=== PATIENT | male | born 1945 | race Caucasian/White ===

== ENCOUNTER 2017-07-26 07:58 | Day surgery (SDC) | payer MEDICARE, BC ==
[~2017-07-26] VITALS: Ht 177.8 cm; Wt 83.5 kg
[~2017-07-26 07:58] MED LIST: ALOE PO; APPLE CIDER VINEGAR; B COMPLEX PO; BACTROBAN TOP; BIOTIN PO; BLACK CHERRY PO; BONE PO; CHOND PO; COMPLETE TISSUE PO; COPPER PO; CRANACTIN PO; EAR DROPS EARWA6.5 % AU; FLAX OIL PO; GARLIC PO; GLUCOSAMINE PO; HYDROXYZ HCL25 MG PO; KEFLEX500 MG PO; LECITHIN PO; MEDDOSEPAK PO; MUSCLE RELAXER; NAPROSYN500 MG PO; NIACIN PO; OMEGA PO; RESVERATROL PO; STEEL LIBIDO PO; TRIAMCINOLON0.11 EX; TRIAMCINOLON0.5 % EX; VITAMIN A PO; VITAMIN B-12 PO; VITAMIN B6; VITAMIN C PO; VITAMIN D3 PO; VITAMIN E PO; VOSOL2 % AU; ZINC PO; [UNRECOGNIZED DRUG - OTHER]; [UNRECOGNIZED DRUG - OTHER] PO; [UNRECOGNIZED DRUG - OTHER] PO; [UNRECOGNIZED DRUG - OTHER] PO; [UNRECOGNIZED DRUG - OTHER] PO; [UNRECOGNIZED DRUG - OTHER] PO; [UNRECOGNIZED DRUG - OTHER] PO; [UNRECOGNIZED DRUG - OTHER] PO
[2017-07-26 11:14] VITALS: BP 144/74
== END 2017-07-26 11:10 | disposition home or self-care (01) ==
LOC: ENDO 07:58 → ORM 08:30 → ENDO 09:45
PROVIDERS: ATTEND Surgery
PROC: 0DB48ZX Excision of Esophagogastric Junction, Via Natural or Artificial Opening Endoscopic, Diagnostic (ICD-10-PCS; principal; 2017-07-26)
PROC: 0DB78ZX Excision of Stomach, Pylorus, Via Natural or Artificial Opening Endoscopic, Diagnostic (ICD-10-PCS; 2017-07-26)
DX: R13.10 Dysphagia, unspecified (principal); K29.50 Unspecified chronic gastritis without bleeding; K21.0 Gastro-esophageal reflux disease with esophagitis; Z98.890 Other specified postprocedural states

== ENCOUNTER → 2018-06-16 | Outpatient (REF) | payer MEDICARE, BC ==
[~2018-06-16] MED LIST changes: +ACULAR LS0.4 % OS; +ERYTHROMYCIN O3.5 GM OU
== END | disposition home or self-care (01) ==
LOC: MRI 14:33
PROVIDERS: ATTEND Physician Assistant
DX: M54.2 Cervicalgia (principal); M50.320 Other cervical disc degeneration, mid-cervical region, unspecified level

== ENCOUNTER 2018-06-22 08:25 | Emergency (ER) | payer MEDICARE, BC ==
[~2018-06-22] VITALS: Ht 177.8 cm; Wt 85.0 kg
[~2018-06-22 08:25] MED LIST changes: -ACULAR LS0.4 % OS; -ERYTHROMYCIN O3.5 GM OU
[2018-06-22] MEDS ORDERED: ERYTHROMYCIN O3.5 GM OU (09:23)
[2018-06-22] MEDS ORDERED: ACULAR LS0.4 % OS (09:23)
[2018-06-22 09:26] VITALS: BP 153/86
== END 2018-06-22 09:30 | disposition home or self-care (01) ==
LOC: ED 08:25
DX: H10.9 Unspecified conjunctivitis (principal)

== ENCOUNTER → 2018-11-08 | Outpatient (REF) | payer MEDICARE, BC ==
[~2018-11-08] VITALS: Ht 175.3 cm; Wt 84.8 kg
[~2018-11-08] MED LIST changes: +ACULAR LS0.4 % OS; +ERYTHROMYCIN O3.5 GM OU
[2018-11-08 10:47] VITALS: BP 144/76
== END | disposition home or self-care (01) ==
LOC: PO 09:50 → ORM 10:00
PROVIDERS: ATTEND Internal Medicine Gastroenterology
DX: Z01.818 Encounter for other preprocedural examination (principal); R13.10 Dysphagia, unspecified; K21.9 Gastro-esophageal reflux disease without esophagitis; G47.30 Sleep apnea, unspecified; Z90.79 Acquired absence of other genital organ(s); Z98.890 Other specified postprocedural states; Z97.2 Presence of dental prosthetic device (complete) (partial)

== ENCOUNTER 2018-11-11 07:55 | Day surgery (SDC) | payer MEDICARE, BC ==
[~2018-11-11] VITALS: Ht 175.3 cm; Wt 84.8 kg
[2018-11-11 10:39] VITALS: BP 145/79
== END 2018-11-11 11:06 | disposition home or self-care (01) ==
LOC: ENDO 07:55 → ORM 10:00 → ENDO 10:00
PROVIDERS: ATTEND Internal Medicine Gastroenterology
PROC: 0DB48ZX Excision of Esophagogastric Junction, Via Natural or Artificial Opening Endoscopic, Diagnostic (ICD-10-PCS; principal; 2018-11-11)
PROC: 0D758ZZ Dilation of Esophagus, Via Natural or Artificial Opening Endoscopic (ICD-10-PCS; 2018-11-11)
DX: K22.2 Esophageal obstruction (principal); K21.0 Gastro-esophageal reflux disease with esophagitis; K29.71 Gastritis, unspecified, with bleeding; K29.81 Duodenitis with bleeding; Z98.890 Other specified postprocedural states

== ENCOUNTER 2019-07-14 15:18 | Emergency (ER) | payer MEDICARE, BC ==
[~2019-07-14] VITALS: Ht 175.3 cm; Wt 70.0 kg
[2019-07-14] MEDS ORDERED: CARAFATE1 GM PO (15:39)
[2019-07-14 15:41] VITALS: BP 128/77
== END 2019-07-14 15:44 | disposition home or self-care (01) ==
LOC: ED 15:18
DX: Z03.89 Encounter for observation for other suspected diseases and conditions ruled out (principal)

== ENCOUNTER 2020-02-09 07:00 | Emergency (ER) | payer MEDICARE, BC ==
[~2020-02-09 07:00] MED LIST changes: +CARAFATE1 GM PO
[2020-02-09] MEDS ORDERED: CARAFATE PO (07:23)
[2020-02-09] MEDS ORDERED: OMEPRAZOLE DR20 MG (07:24)
[2020-02-09 07:55] LABS: IMMATURE GRANULOCYTES 0.3 % (0.0-5.0); MEAN CELL VOLUME 86.7 fL CALC (80.0-100.0); MEAN CORPUSCULAR HGB 27.7 pG CALC (26.0-32.0); NEUT# 5.82 thou/uL (1.82-7.42); RED BLOOD COUNT 4.65 mill/uL (4.70-6.10); RED CELL DISTRI WIDTH 15.4 % (11.5-15.5)
[2020-02-09 08:02] LABS: HEMATOCRIT 40.3 % (39.0-50.0); HEMOGLOBIN 12.9 g/dl (14.0-18.0)
[2020-02-09 08:08] LABS: ALBUMIN 3.7 g/dL (3.2-5.0); ALKALINE PHOSPHATASE 54 u/l (38-126); ANION GAP 12 (6-22 (CALC)); BUN 19 mg/dL (8-23); BUN/CREATININE RATIO 18 (12-20 (CALC)); CARBON DIOXIDE 23 mmol/l (22-30); CHLORIDE 106 mmol/l (95-108); GFR > 60 ML/MIN (>=60 (CALC)); GFR FOR AFR.AMER. > 60 ML/MIN (>=60 (CALC)); LIPASE 94 u/l (23-300); POTASSIUM 4.4 mmol/l (3.5-5.1); SGOT/AST 49 u/l (19-48); SODIUM 137 mmol/l (137-146); TOTAL PROTEIN 6.5 g/dL (6.3-8.2)
[2020-02-09 08:09] LABS: BILIRUBIN, TOTAL 0.6 mg/dL (0.0-1.4)
[2020-02-09 08:12] VITALS: BP 192/80
[2020-02-09 08:13] LABS: ACT PARTIAL THROMBO TIME 29.6 SECONDS (20.0-32.5); D-DIMER 1.58 mg/L (0.19-0.60); INTERNATIONAL NORMALIZED RATIO 1.1 RATIO (0.7-1.3); PROTHROMBIN TIME 11.1 SECONDS (9.0-12.5)
== END 2020-02-09 08:08 | disposition short-term general hospital (02) ==
LOC: ED 07:00
DX: R07.9 Chest pain, unspecified (principal); R00.1 Bradycardia, unspecified; I44.7 Left bundle-branch block, unspecified; I44.1 Atrioventricular block, second degree; J18.9 Pneumonia, unspecified organism; Z20.828 Contact with and (suspected) exposure to other viral communicable diseases

== ENCOUNTER 2020-12-07 12:25 | Emergency (ER) | payer MEDICARE, BC ==
[~2020-12-07] VITALS: Ht 177.8 cm; Wt 56.0 kg
[~2020-12-07 12:25] MED LIST changes: +ALOE VER EX; +BIOTIN10 M1 PO; +CARAFATE PO; +CRANBERRY425 M1 PO; +ENALAPR/HCTZ1 TAB PO; +FLAX SEED OIL1300 MG PO; +GARLIC100 MG PO; +GLUCOSAMINE CHO1 CA3 PO; +NIACIN500 M2 PO; +OMEGA 3 500 5001 CAP PO; +OMEPRAZOLE DR20 MG; +PSYLLIUM XX; +VITAMIN A8000 UNI1 PO; +VITAMIN B 6100 MG PO; +VITAMIN B COMPL1 TAB PO; +VITAMIN B-12500 MCG PO; +VITAMIN D3400 UNI2 PO; +VITAMIN7 PO; +ZINC CHELATED PO; +[UNRECOGNIZED DRUG - CODE] IV; +[UNRECOGNIZED DRUG - CODE] PO; +[UNRECOGNIZED DRUG - OTHER]; +[UNRECOGNIZED DRUG - OTHER] PO; +[UNRECOGNIZED DRUG - OTHER] PO; +[UNRECOGNIZED DRUG - OTHER] PO; +[UNRECOGNIZED DRUG - OTHER] XX
[2020-12-07 12:54] LABS: HEMATOCRIT 41.7 % (39.0-50.0); HEMOGLOBIN 13.9 g/dl (14.0-18.0); IMMATURE GRANULOCYTES 0.4 % (0.0-5.0); MEAN CELL VOLUME 90.3 fL CALC (80.0-100.0); MEAN CORPUSCULAR HGB 30.1 pG CALC (26.0-32.0); MEAN CORPUSCULAR HGB CONC 33.3 g/dL CAL (32.0-36.0); NEUT# 5.16 thou/uL (1.82-7.42); RED BLOOD COUNT 4.62 mill/uL (4.70-6.10); RED CELL DISTRI WIDTH 12.8 % (11.5-15.5)
[2020-12-07] MEDS ORDERED: [UNRECOGNIZED DRUG - OTHER] PO (13:13)
[2020-12-07 13:27] LABS: ALBUMIN 4.4 g/dL (3.2-5.0); ALKALINE PHOSPHATASE 50 u/l (38-126); ANION GAP 15 (6-22 (CALC)); BILIRUBIN, TOTAL 0.6 mg/dL (0.0-1.4); BUN 30 mg/dL (8-23); BUN/CREATININE RATIO 25 (12-20 (CALC)); CARBON DIOXIDE 21 mmol/l (22-30); CHLORIDE 100 mmol/l (95-108); CREATININE 1.2 mg/dL (0.7-1.3); GFR 59 ML/MIN (>=60 (CALC)); GFR FOR AFR.AMER. > 60 ML/MIN (>=60 (CALC)); LIPASE 205 u/l (23-300); POTASSIUM 3.8 mmol/l (3.5-5.1); SGOT/AST 29 u/l (19-48); SODIUM 132 mmol/l (137-146); TOTAL PROTEIN 7.8 g/dL (6.3-8.2)
[2020-12-07] MEDS ORDERED: OLMESARTAN MEDO1 TA1 PO (13:28)
[2020-12-07] MEDS ORDERED: OMEPRAZOLE DR20 MG PO (13:29)
[2020-12-07 15:58] VITALS: BP 144/70
== END 2020-12-07 15:58 | disposition home or self-care (01) ==
LOC: ED 12:25
DX: R19.7 Diarrhea, unspecified (principal); Z95.0 Presence of cardiac pacemaker; Z20.822 Contact with and (suspected) exposure to COVID-19

== ENCOUNTER 2021-05-16 08:51 | Observation (INO) | payer MEDICARE, BC ==
[~2021-05-16] VITALS: Ht 175.3 cm; Wt 81.0 kg
[~2021-05-16 08:51] MED LIST changes: +OLMESARTAN MEDO1 TA1 PO; +OMEPRAZOLE DR20 MG PO; +[UNRECOGNIZED DRUG - OTHER] PO
--- NOTE | 2021-05-16 09:57 | NUR ---
PT AMBULATED TO ER BED 7 WITH AN EVEN AND STEADY GAIT IN NO APPARENT DISTRESS FOR TRIAGE AND EXAM.
[2021-05-16 11:13] LABS: HEMATOCRIT 43.4 % (39.0-50.0); HEMOGLOBIN 14.9 g/dl (14.0-18.0); IMMATURE GRANULOCYTES 0.3 % (0.0-5.0); MEAN CELL VOLUME 89.3 fL CALC (80.0-100.0); MEAN CORPUSCULAR HGB 30.7 pG CALC (26.0-32.0); MEAN CORPUSCULAR HGB CONC 34.3 g/dL CAL (32.0-36.0); NEUT# 3.23 thou/uL (1.82-7.42); RED BLOOD COUNT 4.86 mill/uL (4.70-6.10); RED CELL DISTRI WIDTH 12.7 % (11.5-15.5)
--- NOTE | 2021-05-16 11:29 | NUR ---
WALKING OXIMETRY TEST PERFORMED, PULSE OX MAINTAINED AT 93-96%. PT TALKING THROUGHOUT TEST WITHOUT DIFFICULTY IN FULL SENTENCES
[2021-05-16 11:31] LABS: ALBUMIN 3.9 g/dL (3.2-5.0); ALKALINE PHOSPHATASE 37 u/l (38-126); ANION GAP 13 (6-22 (CALC)); BILIRUBIN, TOTAL 0.7 mg/dL (0.0-1.4); BUN 24 mg/dL (8-23); BUN/CREATININE RATIO 19 (12-20 (CALC)); CARBON DIOXIDE 26 mmol/l (22-30); CHLORIDE 90 mmol/l (95-108); CREATININE 1.3 mg/dL (0.7-1.3); GFR 53 ML/MIN (>=60 (CALC)); GFR FOR AFR.AMER. > 60 ML/MIN (>=60 (CALC)); LIPASE 159 u/l (23-300); SGOT/AST 89 u/l (19-48); SODIUM 125 mmol/l (137-146); TOTAL PROTEIN 7.2 g/dL (6.3-8.2)
[2021-05-16 11:34] LABS: C-REACTIVE PROTEIN 4.9 mg/dL (0-0.9)
--- NOTE | 2021-05-16 12:30 | NUR ---
PT RESTING IN BED WITH EYES CLOSED. PT WAKES TO VERBAL STIMULI. NO S/S OF DISTRESS. RESP EVEN/UNLABORED. CALL LIGHT WITHIN REACH.
--- NOTE | 2021-05-16 13:20 | NUR ---
PT RESTING IN BED WITH EYES CLOSED. NO S/S OF DISTRESS. WILL CONTINUE TO MONITOR.
--- NOTE | 2021-05-16 14:33 | NUR ---
PT RESTING IN BED WITH EYES CLOSED. NO S/S OF DISTRESS. CALL LIGHT WITHIN REACH.
--- NOTE | 2021-05-16 15:30 | NUR ---
PT RESTING IN BED AWAITING RESULTS. NO S/S OF DISTRESS. CALL LIGHT WITHIN REACH.
--- NOTE | 2021-05-16 16:00 | NUR ---
ORDER PLACED FOR NS BOLUS, BUT VERBAL ORDER WAS FOR 50 CC/HR. MD CLARIFIED ORDER FOR 50 CC/HR. WILL FIX ORDER IN CPOE.
--- NOTE | 2021-05-16 16:57 | NUR ---
MD AT B/S TO DISCUSS PLAN OF CARE AND ADMISSION FOR PATIENT. PT VERBALIZED UNDERSTANDING OF PLAN OF CARE. NO S/S OF DISTRESS. NO NEEDS AT THIS TIME.
--- NOTE | 2021-05-16 17:47 | NUR ---
ASSISTED PT TO USE URINAL AT B/S. NO S/S OF DISTRESS. PT HAS NO COMPLAINTS OR NEEDS AT THIS TIME.
[2021-05-16 18:37] LABS: URINE BILIRUBIN - DIPSTICK NEGATIVE (NEGATIVE); URINE BLOOD DIPSTICK SMALL (NEGATIVE); URINE COLOR YELLOW; URINE GLUCOSE - DIPSTICK NEGATIVE (NEGATIVE); URINE KETONE 15 mg/dL (NEGATIVE); URINE LEUK ESTERASE NEGATIVE (NEGATIVE); URINE NITRITE - DIPSTICK NEGATIVE (Negative); URINE PROTEIN - DIPSTICK 30 mg/dL (NEG-TRACE); URINE UROBILINOGEN - DIPSTICK 0.2 E.U./dL (0.2)
[2021-05-16 18:48] LABS: URINE MUCUS FEW hpf (NONE-FEW); URINE RBC 0-2 RBC/hpf (0-5)
--- NOTE | 2021-05-16 19:12 | NUR ---
REPORT TO DAYAMI MALHOTRA ON M/S. DAYAMI SWAN IN ER ALSO UPDATED OF PATIENT STATUS UNTIL WHICH TIME PT CAN BE TRANSPORTED TO M/S.
--- NOTE | 2021-05-16 20:19 | NUR ---
UNABLE TO GIVE REPORT AT THIS TIME. RN BUSY.
--- NOTE | 2021-05-16 20:23 | NUR ---
RESTING COMFORTABLY AWAITING ADMIT.
--- NOTE | 2021-05-16 21:45 | NUR ---
TO FLOOR BY STRETCHER.
[2021-05-16 21:49] VITALS: BP 126/64
--- NOTE | 2021-05-16 21:49 | NUR ---
PT ARRIVED TO MED SURG COVID UNIT VIA WC ACCOMPANIED BY ED NURSE. PT APPEARS TO BE STABLE AT THIS TIME. CLINICAL APPEALS REVIEWER IN WITH PT AT THIS TIME.
--- NOTE | 2021-05-16 22:30 | NUR ---
PT HAS PREVIOUSLY BEEN ORIENTED TO ROOM, CALL SYSTEM, LIGHTS, TV, BED. THESE WERE ALL REINFORCED AT THIS TIME. PT LOCX4. HE DOES REPORT HAVING A FALL LAST WEEK AND HURTING HIS R.FEMOR AREA. THIS WAS XRAY'D IN ED AND RESULTS REVIEWED WITH PT AT THIS TIME, HE WAS ASKING FOR RESULTS. ASSESSMENT COMPLETED AT THIS TIME. IVF ADMINISTERED AT THIS TIME AND MEDICATIONS ORDERS PROVIDE. DISCUSSED POC AND PROACITVE CARE PARTICIPATION THAT THE PT CAN DO, VERBALIZED UNDERSTANDING. PT REPORTS THAT HE TAKES MANY SUPPLEMENTS "TO PREVENT COVID". I DID ADVISE HIM THAT HE WAS COVID POS AND HAD PNEUMONIA, HE VERBALIZED UNDERSTANDING. HE REPORTED HAVING LACK OF APPETITE RECENTLY AND LOOSE STOOL OFF AND ON FOR TWO WEEKS AND PROGRESSIVELY GETTING WEAKER AND WEAKER. CRACKERS AND PO FLUIDS PROVIDED PER REQUEST AT THIS TIME.
[2021-05-16 23:59] VITALS: BP 128/67
--- NOTE | 2021-05-17 01:40 | NUR ---
PT APPEARS TO BE SLEEPING, NO S/O DISTRESS NOTED, RESP EVEN AND NON-LABORED.
--- NOTE | 2021-05-17 03:50 | NUR ---
MIG TIG WELDER AND BULK COOLER INSTALLER ENTERED TO OBTAIN V/S. PT REPORTED HAVING LOOSE STOOL AND APPEARED QUITE DISTRESSED ABOUT IT. WE REASSURED HIM THAT IT WAS A COMMON SYMPTOM OF COVID AND THAT WE WOULD HELP HIM. BEDDING, GOWN CHANGED. PT ASKED FOR DISPOSABLE BRIEF, PROVIDED AND ASSISTED PUTTING THIS ON. PT WAS CLEANED OF INCONT STOOL AND DARIN-CARE PROVIDED. 500CC OF WATERY STOOL/URINE MIXTURE EMPTIED FROM BSC AT THIS TIME. PT HAD PREVIOUSLY BEEN PROVIDED BY BULK COOLER INSTALLER OF DARIN-WIPES FOR CLEANING SELF. HE ASKED ME AT THIS TIME IF THIS HOSPITAL IS TOO CHEAP TO PROVIDE TOILET PAPER ROLLS, I ASSURED HIM THAT WE ARE NOT. MIG TIG WELDER OBTAINED TOILET PAPER FROM ICU AND PROVIDED TO THE PT AT BEDSIDE. DENIES ANY OTHER NEEDS OF ASSISTANCE AT THIS TIME.
[2021-05-17 04:50] VITALS: BP 125/60
[2021-05-17 05:46] LABS: HEMATOCRIT 43.7 % (39.0-50.0); HEMOGLOBIN 15.1 g/dl (14.0-18.0); IMMATURE GRANULOCYTES 0.6 % (0.0-5.0); MEAN CORPUSCULAR HGB 30.8 pG CALC (26.0-32.0); MEAN CORPUSCULAR HGB CONC 34.6 g/dL CAL (32.0-36.0); NEUT# 2.55 thou/uL (1.82-7.42); RED BLOOD COUNT 4.91 mill/uL (4.70-6.10); RED CELL DISTRI WIDTH 12.7 % (11.5-15.5)
[2021-05-17 06:19] LABS: ALKALINE PHOSPHATASE 40 u/l (38-126); ANION GAP 13 (6-22 (CALC)); BILIRUBIN, TOTAL 0.6 mg/dL (0.0-1.4); BUN 25 mg/dL (8-23); BUN/CREATININE RATIO 28 (12-20 (CALC)); C-REACTIVE PROTEIN 5.3 mg/dL (0-0.9); CARBON DIOXIDE 24 mmol/l (22-30); CHLORIDE 96 mmol/l (95-108); CREATININE 0.9 mg/dL (0.7-1.3); GFR > 60 ML/MIN (>=60 (CALC)); GFR FOR AFR.AMER. > 60 ML/MIN (>=60 (CALC)); POTASSIUM 4.1 mmol/l (3.5-5.1); SGOT/AST 84 u/l (19-48); SODIUM 129 mmol/l (137-146); TOTAL PROTEIN 5.9 g/dL (6.3-8.2)
[2021-05-17 06:20] LABS: ALBUMIN 3.1 g/dL (3.2-5.0)
[2021-05-17 07:54] VITALS: BP 132/67
--- NOTE | 2021-05-17 07:54 | NUR ---
PT IN BED WHEN ENTERED ROOM. ALERT AND ORIENTED. PT IS COVID+. ON 2L OF 02 NC. VITALS AND ASSESSMENT COMPLETED. S1 AND S2 HEARD UPON ASCULTATION. BOWELS ACTIVE IN ALL 4 QUADRANTS. PT SKIN IS WARM AND DRY. PTS IV PATENT AND HEALTHY. PEDAL PULSES BILATERALLY STRONG. NO PAIN INDICATED. CALL LIGHT WITHIN REACH.
[2021-05-17 10:20] VITALS: BP 125/67
--- NOTE | 2021-05-17 12:00 | NUR ---
6 MIN WALK TEST DONE. NO DISTRESS NOTED.
--- NOTE | 2021-05-17 12:00 | NUR ---
PT IN BED NO DISTRESS NOTED. CALL LIGHT WITHIN REACH.
[2021-05-17] MEDS ORDERED: ZITHROMAX250 MG PO ×2 (12:40→14:19)
[2021-05-17] MEDS ORDERED: DEXAMETHASON6 MG PO (12:40)
[2021-05-17] MEDS ORDERED: ASPIRIN REGULA325 M1 PO ×2 (12:41→14:20)
[2021-05-17] MEDS ORDERED: OLMESARTAN MEDO1 TA1 PO (14:20)
[2021-05-17] MEDS ORDERED: OMEPRAZOLE DR20 MG PO (14:20)
[2021-05-17] MEDS ORDERED: PROAIR HFA108 MCG/AC IN (14:22)
--- NOTE | 2021-05-17 14:50 | NUR ---
Discharge instructions given. Patient verbalizes understanding of same. Discharged in stable condition via Wheelchair to Home with staff. All belongings sent with pt.
== END 2021-05-17 14:52 | disposition home or self-care (01) ==
LOC: ED 08:51 → ED-I 13:50 → ED 17:15 → MS2 17:16
PROVIDERS: Family Medicine; ADMIT Hospitalist; ATTEND Hospitalist
DX: U07.1 COVID-19 (principal); J12.82 Pneumonia due to coronavirus disease 2019; E87.1 Hypo-osmolality and hyponatremia; I25.10 Atherosclerotic heart disease of native coronary artery without angina pectoris; K21.9 Gastro-esophageal reflux disease without esophagitis; K52.9 Noninfective gastroenteritis and colitis, unspecified; Z95.0 Presence of cardiac pacemaker
CPT/HCPCS: Q9967